=== PATIENT | male | born 1930 | race Caucasian/White ===

== ENCOUNTER 2017-01-06 09:33 | Day surgery (SDC) | payer MEDICARE, BC ==
[2017-01-06] MEDS ORDERED: ACETAMINOPHEN 325 MG ONE (09:37)
[2017-01-06] MEDS ORDERED: TRYPAN BLUE 0.5 ML SOL IO ONE (09:44)
[2017-01-06] MEDS ORDERED: LIDOCAINE HCL 1% MPF SOL ONE (09:44)
[2017-01-06] MEDS ORDERED: POVIDONE IODINE 5% SOL ONE (09:44)
[2017-01-06] MEDS ORDERED: BSS W/ 0.25MG P.F. EPI 1 BOTTLE ONE (09:44)
[2017-01-06 09:52] VITALS: TEMP 97.6
[2017-01-06] MEDS: PROPARACAINE HCL 0.5% OPHTHALMIC SOL ONE ×3 (09:53→10:46)
[2017-01-06] MEDS: PHENYLEPHRINE HCL 10% OPHTHAL SOL ONE ×2 (09:53→10:06)
[2017-01-06] MEDS: CYCLOPENTOLATE 1% SOL ONE ×2 (09:53→10:07)
[2017-01-06] MEDS ORDERED: MIDAZOLAM 2 MG/2 ML SOL ONE (09:57)
[2017-01-06] MEDS ORDERED: FENTANYL CITRATE 50 MCG/ML SOL ONE (09:57)
[2017-01-06 12:09] VITALS: BP 122/70; PULSE 61; RESP 20; O2SAT 96
== END 2017-01-06 12:40 | disposition home or self-care (01) | DRG 125 ==
LOC: SURG 09:33
PROVIDERS: ATTEND Ophthalmology
DX: H25.812 Combined forms of age-related cataract, left eye (principal); H21.81 Floppy iris syndrome; H59.88 Other intraoperative complications of eye and adnexa, not elsewhere classified; H21.89 Other specified disorders of iris and ciliary body; Y84.8 Other medical procedures as the cause of abnormal reaction of the patient, or of later complication, without mention of misadventure at the time of the procedure
CPT/HCPCS: J2250; J3010; J2001

== ENCOUNTER 2017-06-23 17:24 | Emergency (ER) | payer MEDICARE, BC ==
[2017-06-23 17:31] VITALS: RESP 16; TEMP 98.9
[2017-06-23] MEDS ORDERED: TDAP VACCINE 0.5 ML SUS IM ONE ×2 (18:00→18:01)
[2017-06-23 18:28] VITALS: BP 122/64; PULSE 64; O2SAT 96
== END 2017-06-23 18:25 | disposition home or self-care (01) | DRG 605 ==
LOC: ED 17:24
DX: S61.012A Laceration without foreign body of left thumb without damage to nail, initial encounter (principal); W27.8XXA Contact with other nonpowered hand tool, initial encounter
CPT/HCPCS: 90715; 99284

== ENCOUNTER 2018-10-13 07:20 | Day surgery (SDC) | payer MEDICARE, BC ==
[2018-10-13] MEDS ORDERED: LIDOCAINE HCL 1% MPF 30 SOL ONE (07:43)
[2018-10-13] MEDS ORDERED: PROPOFOL 500 MG/50 ML EMU IV ONE (07:43)
[2018-10-13 09:06] VITALS: BP 126/73; PULSE 52; RESP 20; TEMP 97.4; O2SAT 97
== END 2018-10-13 09:20 | disposition home or self-care (01) | DRG 951 ==
LOC: SURG 07:20
PROVIDERS: ATTEND Surgery
DX: Z12.11 Encounter for screening for malignant neoplasm of colon (principal); Z85.038 Personal history of other malignant neoplasm of large intestine; D12.2 Benign neoplasm of ascending colon; K63.89 Other specified diseases of intestine
CPT/HCPCS: J2001; J2704